=== PATIENT | female | born 1985 | race Caucasian/White ===

== ENCOUNTER → 2017-08-02 | Outpatient (CLI) | payer SELFPAY ==
--- NOTE | 2017-08-02 15:08 | Diagnostic Imaging Report ---
INDICATION: Abnormal uterine bleeding. FINDINGS: Uterus measures 7.5 x 5.5 x 5.2 cm. Endometrial stripe is thickened at 1.3 cm. There are no myometrial masses. The right ovary measures 4.0 x 2.3 x 3.4 cm. The left ovary measures 4.9 x 4 x 2.3 cm. There are multiple follicular cysts noted bilaterally, largest cyst measuring approximately 1.4 cm in the left ovary. There is a trace of free fluid adjacent to the left ovary. There is normal color flow enhancement to the ovaries. IMPRESSION: 1. There is mild endometrial thickening noted measuring 1.3 cm. 2. Bilateral follicular cysts with dominant cyst on the left measuring 1.4 cm. There is a small amount of free fluid surrounding the left ovary. Dictated by: Dictated on workstation # [id number]
== END ==
LOC: RAD 13:51
PROVIDERS: ATTEND Nurse Practitioner Family
DX: N85.8 Other specified noninflammatory disorders of uterus (principal); N83.201 Unspecified ovarian cyst, right side; N83.202 Unspecified ovarian cyst, left side
CPT/HCPCS: 76830; 76856

== ENCOUNTER 2021-04-04 06:19 | Day surgery (SDC) | payer MEDICAID ==
[2021-04-04] VITALS (10 sets, daily range): BP systolic 102–123; BP diastolic 68–95
[~2021-04-04] VITALS: Ht 177 cm; Wt 103.0 kg
[2021-04-04 06:59] LABS: BASOPHILS % (AUTO) 0 % (0-10); EOSINOPHILS # (AUTO) 0.7 10^3/uL (0.0-0.3); EOSINOPHILS % (AUTO) 6 % (0-10); HEMATOCRIT 40 % (35-52); HEMOGLOBIN 13.1 g/dL (11.5-16.0); LYMPHOCYTES # (AUTO) 2.4 10^3/uL (1.0-4.0); LYMPHOCYTES % (AUTO) 21 % (12-44); MEAN CORPUSCULAR HEMOGLOBIN 28 pg (25-34); MEAN CORPUSCULAR HGB CONC 33 g/dL (32-36); MEAN CORPUSCULAR VOLUME 85 fL (80-99); MEAN PLATELET VOLUME 10.7 fL (9.0-12.2); MONOCYTES # (AUTO) 0.8 10^3/uL (0.0-1.0); MONOCYTES % (AUTO) 7 % (0-12); NEUTROPHILS # (AUTO) 7.5 10^3/uL (1.8-7.8); NEUTROPHILS % (AUTO) 65 % (42-75); PLATELET COUNT 313 10^3/uL (130-400); WHITE BLOOD COUNT 11.5 10^3/uL (4.3-11.0)
[2021-04-04] MEDS ORDERED: ceFAZolin INJECTION 1,000 MG ONE (06:59)
[2021-04-04] MEDS ORDERED: WATER (STERILE) FOR INJECTION 10 ML ONE (06:59)
[2021-04-04] MEDS ORDERED: ceFAZolin INJECTION 1,000 MG in WATER (STERILE) FOR INJECTION 10 ML IV ONE (07:00)
[2021-04-04] MEDS ORDERED: LACTATED RINGERS 1,000 ML IV PRN (07:00)
[2021-04-04] MEDS ORDERED: MIDAZOLAM 2 MG/2 ML (VERSED) VIAL ONE (07:15)
[2021-04-04] MEDS ORDERED: fentaNYL INJ 100 MCG/2 ML AMP ONE (07:17)
[2021-04-04] MEDS ORDERED: LIDOCAINE PF 2% 5 ML (XYLOCAINE) VIAL ONE (07:45)
[2021-04-04] MEDS ORDERED: proPOfol 200 MG/20 ML (DIPRIVAN) VIAL IV ONE (07:45)
[2021-04-04] MEDS ORDERED: ONDANSETRON 4 MG/2 ML (SDV) Z0FRAN ONE (07:45)
[2021-04-04] MEDS ORDERED: KETOROLAC 30 MG/ML VIAL ONE (07:45)
[2021-04-04] MEDS ORDERED: SEVOFLURANE (ULTANE) 15 ML INHAL SOLN ONE (07:46)
--- NOTE | 2021-04-04 07:53 | Discharge Inst-Surgical ---
Discharge Inst-Surgical Depart Medication/Instructions New, Converted or Re-Newed RX: Other Consults/Follow Up Patient Instructions: As directed Orders & Referrals Follow Up Appt: Call to make follow up appt. for patient in 2 weeks. Activity: Rest for 24 hours, than as tolerated. Diet: As tolerated- shower or tub bathe as desired. Nothing per vagina (no tampons, douching, or intercoarse) for 2 weeks. Patient to return to the clinic as soon as possible for: Temperature greater than 101F, Severe Pain, Foul discharge from incision or vagina, Excessive Bleeding (more than a period). Diet Discharge Diet: No Restrictions VERITO TORRES MD Apr 04, 2021 07:53
--- NOTE | 2021-04-04 07:54 | Progress Note-Pre Operative ---
Pre-Operative Progress Note H&P Reviewed The H&P was reviewed, patient examined and no changes noted. Date Seen by Provider: Apr 04, 2021 Time Seen by Provider: 07:15 Date H&P Reviewed: Apr 04, 2021 Time H&P Reviewed: 07:15 Pre-Operative Diagnosis: Missed AB weeks gestation VERITO TORRES MD Apr 04, 2021 07:54
--- NOTE | 2021-04-04 07:55 | Progress Note-Post Operative ---
Post-Operative Progess Note Surgeon (s)/Ice Skater (s) Surgeon VERITO TORRES MD Ice Skater: no Pre-Operative Diagnosis Missed AB weeks gestation Post-Operative Diagnosis Same Procedure & Operative Findings Date of Procedure 04/04/21 Procedure Performed/Findings D&C for first trimester missed Anesthesia Type GETA Estimated Blood Loss Estimated blood loss (mL): Minimal Specimens/Packing Specimens Removed Uterine contents/products of conception VERITO TORRES MD Apr 04, 2021 07:55
[2021-04-04] MEDS ORDERED: D5 LR IV SOLUTION 1,000 ML IV SCH (08:00)
[2021-04-04] MEDS ORDERED: ONDANSETRON 4 MG/2 ML (SDV) Z0FRAN IVP PRN (08:00)
[2021-04-04] MEDS ORDERED: KETOROLAC 30 MG/ML VIAL IVP ONE (08:00)
[2021-04-04] MEDS ORDERED: KETOROLAC 30 MG/ML VIAL IVP SCH (08:00)
[2021-04-04] MEDS ORDERED: fentaNYL INJ 100 MCG/2 ML AMP IVP PRN (08:00)
[2021-04-04] MEDS ORDERED: oxyCODONE/APAP 5/325MG (PERCOCET 5) TABLET PO PRN (08:00)
--- NOTE | 2021-04-04 10:28 | OPERATIVE REPORT ---
DATE OF SERVICE: 04/04/2021 PREOPERATIVE DIAGNOSIS: Missed AB at 11 weeks' gestation. POSTOPERATIVE DIAGNOSIS: Missed AB at 11 weeks' gestation. OPERATIVE PROCEDURE: D and C for first trimester missed AB. OPERATIVE DESCRIPTION: With the patient in the supine position under satisfactory general anesthesia, she was repositioned in dorsal lithotomy position in the Mynor stirrups and prepped and draped in the usual fashion for vaginal surgery. A weighted speculum placed in posterior fornix of vagina, cervix exposed and grasped anteriorly with single tooth tenaculum. Uterus was sounded to 16 cm with uterine sound. Cervix was then serially dilated to a #10 Hegar dilator and then a #10 curved suction curette was introduced in the uterine cavity. Vacuum curettaged with removal of large amount of trophoblastic and decidual appearing tissue, blood, clot, amniotic fluid and debris. The endometrial cavity was then sharply curettaged in all 4 quadrants to good uterine cry. A curved suction curette was reintroduced, and all blood clot and debris evacuated from the uterine cavity. The tenaculum was removed. There was no bleeding from the cervical os. There was some bleeding from one of the puncture sites from the tenaculum. This was touched with silver nitrate to effect hemostasis. Now with hemostasis assured, sponge and needle counts correct and procedure was complete and terminated. Estimated blood loss for procedure was minimal. Sponge and needle counts were correct on completion of procedure. The patient was uneventfully awakened from her general anesthesia and transferred to the recovery room in stable condition with plans for discharge home PAR. Job ID: [id number] DocumentID: [id number] Dictated Date: 04/04/2021 07:36:07 Traffic Control Flagger Date: 04/04/2021 10:28:04 Dictated By: VERITO TORRES MD
--- NOTE | 2021-04-04 10:51 | Anesthesia-General Post-Op ---
General Patient Condition Mental Status/LOC: Same as Preop Cardiovascular: Satisfactory Nausea/Vomiting: Absent Respiratory: Satisfactory Pain: Controlled Complications: Absent Post Op Complications Complications None Follow Up Care/Instructions Patient Instructions None needed. Anesthesia/Patient Condition Patient Condition Patient is doing well, no complaints, stable vital signs, no apparent adverse anesthesia problems. No complications reported per nursing. GILA ETJEDA CRNA Apr 04, 2021 10:51
== END 2021-04-04 09:25 ==
LOC: SDC 06:19
PROVIDERS: ATTEND Obstetrics & Gynecology
DX: O02.1 Missed abortion (principal); E66.9 Obesity, unspecified; Z68.32 Body mass index [BMI] 32.0-32.9, adult; Z79.899 Other long term (current) drug therapy
CPT/HCPCS: 36415; 85025; 86850; 86900; 86901; 87081

== ENCOUNTER 2022-04-11 11:14 | Inpatient (IN) | payer MEDICAID ==
[~2022-04-11] VITALS: Ht 177.8 cm; Wt 100.3 kg
[2022-04-11] VITALS (16 sets, daily range): BP systolic 96–137; BP diastolic 54–82
--- NOTE | 2022-04-11 11:20 | History & Physical ---
History and Physical Date Seen by Provider: Apr 11, 2022 Time Seen by Provider: 11:18 This patient is a 36-year-old 5 para 2 A3 female with an EDC of 05/09/2022 putting her at 36 weeks gestation now. She is seen in clinic on this date and found to be in labor. Her cervix initially was 4 to 5 cm dilated on recheck less than an hour later she was 6 to 7 cm 80% effaced 0 station vertex presentation with a bulging bag. She also may be leaking amniotic fluid as she had a low ADA on ultrasound and reports constantly being wet between the legs for the last week. Patient's GBS culture was negative. She has had no other problems with this . She has delivered her other babies at 36 to 37 weeks. Allergies are none Medications are vitamins Medical social and surgical history is are per the antepartum record HEENT exam is normal Neck is supple no lymphadenopathy no thyromegaly Abdomen is gravid soft nontender nondistended Extremity show no clubbing cyanosis. There is no Homans' sign. Pelvic exam in my clinic showed a cervix it was 6 to 7 cm dilated 80% effaced 0 to -1 station vertex presentation with a bulging bag and with bloody show Assessment and plan 36-week with labor and a GBS negative culture with advanced cervical dilation. We anticipate vaginal delivery 36 weeks gestation with labor Allergies and Home Medications Allergies Coded Allergies: No Known Drug Allergies (Unverified , 04/04/21) Patient Home Medication List Home Medication List Reviewed: Yes No Active Prescriptions or Reported Meds VERITO TORRES MD Apr 11, 2022 11:20
[2022-04-11] MEDS ORDERED: D5 LR IV SOLUTION 1,000 ML IV SCH (11:30)
[2022-04-11] MEDS ORDERED: D5 LR IV SOLUTION 1,000 ML IV ONE (11:34)
[2022-04-11 11:57] LABS: BASOPHILS % (AUTO) 0 % (0-10); EOSINOPHILS # (AUTO) 0.2 10^3/uL (0.0-0.3); EOSINOPHILS % (AUTO) 2 % (0-10); HEMATOCRIT 31 % (35-52); HEMOGLOBIN 10.4 g/dL (11.5-16.0); LYMPHOCYTES # (AUTO) 2.1 10^3/uL (1.0-4.0); LYMPHOCYTES % (AUTO) 19 % (12-44); MEAN CORPUSCULAR HEMOGLOBIN 29 pg (25-34); MEAN CORPUSCULAR HGB CONC 34 g/dL (32-36); MEAN CORPUSCULAR VOLUME 84 fL (80-99); MEAN PLATELET VOLUME 10.6 fL (9.0-12.2); MONOCYTES # (AUTO) 0.6 10^3/uL (0.0-1.0); MONOCYTES % (AUTO) 5 % (0-12); NEUTROPHILS # (AUTO) 7.6 10^3/uL (1.8-7.8); NEUTROPHILS % (AUTO) 72 % (42-75); PLATELET COUNT 258 10^3/uL (130-400); WHITE BLOOD COUNT 10.6 10^3/uL (4.3-11.0)
[2022-04-11] MEDS ORDERED: OXYTOCIN PRE-MIX DRIP 500 ML IV SCH ×2 (16:15→18:15)
[2022-04-11] MEDS ORDERED: OXYC-199 PO (16:28)
[2022-04-11] MEDS ORDERED: IBUP-1780 PO (16:28)
[2022-04-11] MEDS ORDERED: DOCU-143 PO (16:28)
--- NOTE | 2022-04-11 16:30 | Discharge Inst-Surgical ---
Discharge Inst-Surgical Depart Medication/Instructions New, Converted or Re-Newed RX: Transmitted to Pharmacy Consults/Follow Up Patient Instructions: As directed Orders & Referrals Follow Up Appt: Call to make follow up appt. for patient in 4 weeks. Activity Per routine post vaginal delivery instructions. Diet as tolerated Patient may shower or tub bathe as desired. Activity Activity as Tolerated: No Diet Discharge Diet: No Restrictions VERITO TORRES MD Apr 11, 2022 16:30
[2022-04-11] MEDS ORDERED: BENZOCAINE/MENTHOL (DERMOPLAST) 56 ML CAN TP PRN (18:15)
[2022-04-11] MEDS ORDERED: TETANUS,DIPTH,PERTUSS P/F (BOOSTRIX) 0.5 ML VIAL IM ONE (18:15)
[2022-04-11] MEDS: IBUPROFEN 800 MG (MOTRIN) TAB PO SCH (20:10)
[2022-04-11] MEDS ORDERED: CALCIUM CARBONATE 500 MG (TUMS) TAB.CHEW PO ONE (23:45)
[2022-04-12 02:00] VITALS: BP 116/68
[2022-04-12] MEDS: IBUPROFEN 800 MG (MOTRIN) TAB PO SCH ×3 (02:00→18:06)
[2022-04-12] MEDS: ACETAMINOPHEN 500 MG TAB (TYLENOL) PO SCH ×3 (02:00→18:06)
--- NOTE | 2022-04-12 03:24 | OPERATIVE REPORT ---
DATE OF SERVICE: 04/11/2022 DELIVERY NOTE The patient delivered by spontaneous vaginal delivery of a viable male infant with Apgars of 8 and 9 at 1 and 5 minutes respectively, weight of 5 pounds 13 ounces, time of 1754 and a cord blood pH is pending. The infant was delivered over an intact perineum under no analgesia. The was bulb suctioned on delivery of the head and again on completion of delivery. The umbilical cord was doubly clamped, father cut the cord, the baby was passed to mom's abdomen. The placenta delivered spontaneously fairly promptly after the baby delivered. The placenta was normal with 3-vessel cord. It was sent to pathology for permanent section due to labor and delivery. The cervix, vagina, rectum, and perineum were examined and found intact. Sponge and needle counts were correct. Blood loss was around 50 mL. The patient tolerated the delivery well and remained in the LDR for recovery. The baby remained with the mom. Job ID: [id number] DocumentID: [id number] Dictated Date: 04/11/2022 18:59:46 Vocational Aide Date: 04/12/2022 03:23:54 Dictated By: VERITO TORRES MD
[2022-04-12 06:30] VITALS: BP 98/53
[2022-04-12] MEDS ORDERED: BISACODYL 5 MG (DULCOLAX) TABLET PO ONE ×3 (07:00→11:00)
--- NOTE | 2022-04-12 07:14 | Progress Note ---
Standard Progress Note Progress Notes/Assess & Plan Date Seen by a Provider: Apr 12, 2022 Time Seen by a Provider: 07:13 Progress/Assessment & Plan This patient is without complaint. She is ambulating, voiding, tolerating oral intake well and has good pain control. Vital Signs Date Time Temp Pulse Resp B/P (MAP) Pulse Ox O2 Delivery O2 Flow Rate FiO2 04/12/22 06:30 36.7 68 18 98/53 (68) 99 04/12/22 02:00 36.7 69 18 116/68 (84) 98 04/11/22 21:26 74 18 96/54 (68) 04/11/22 21:11 67 18 105/57 (73) 04/11/22 20:56 70 18 101/66 (78) 04/11/22 20:41 73 18 99/66 (77) 04/11/22 20:26 75 18 104/60 (75) 04/11/22 20:12 36.3 75 18 111/64 (80) 04/11/22 18:26 36.2 84 20 99/72 (81) 04/11/22 18:10 74 20 106/67 (80) 04/11/22 17:55 92 20 101/63 (76) 04/11/22 17:45 77 20 116/70 (85) 04/11/22 17:30 74 20 137/82 (100) 04/11/22 17:10 67 20 109/66 (80) 04/11/22 16:55 60 20 107/67 (80) 04/11/22 16:40 68 20 101/60 (74) 04/11/22 16:25 36.7 74 20 103/62 (76) 04/11/22 11:25 36.0 83 18 98 Room Air I & O 04/12/22 07:00 Intake Total 500 ml Balance 500 ml Vital signs are stable. Patient is afebrile. Fundus is firm below the umbilicus Tender. Extremities show no clubbing or cyanosis. There is no Homans' sign. Assessment and plan day 1 doing well plan. Will discharge home today or tomorrow as patient prefers Final Diagnosis 36-week spontaneous vaginal delivery VERITO TORRES MD Apr 12, 2022 07:14
[2022-04-12] MEDS ORDERED: BISACODYL 10 MG SUPP (DULCOLAX) PR ONE ×2 (07:15→11:00)
[2022-04-12 09:30] VITALS: BP 106/67
[2022-04-12 12:45] VITALS: BP 105/55
[2022-04-12] MEDS: DOCUSATE SODIUM 100 MG (COLACE) CAP PO SCH (13:20)
[2022-04-12 18:07] VITALS: BP 105/59
[2022-04-13] VITALS: BP 99/57
[2022-04-13] MEDS: ACETAMINOPHEN 500 MG TAB (TYLENOL) PO SCH ×2 (02:08→11:03)
[2022-04-13 06:45] VITALS: BP 100/60
--- NOTE | 2022-04-13 06:57 | Progress Note ---
Standard Progress Note Progress Notes/Assess & Plan Date Seen by a Provider: Apr 13, 2022 Time Seen by a Provider: 06:54 Progress/Assessment & Plan This patient is without complaint. She is ambulating, voiding, tolerating oral intake well and has good pain control. Vital Signs Date Time Temp Pulse Resp B/P (MAP) Pulse Ox O2 Delivery O2 Flow Rate FiO2 04/12/22 06:30 36.7 68 18 98/53 (68) 99 04/12/22 02:00 36.7 69 18 116/68 (84) 98 04/11/22 21:26 74 18 96/54 (68) 04/11/22 21:11 67 18 105/57 (73) 04/11/22 20:56 70 18 101/66 (78) 04/11/22 20:41 73 18 99/66 (77) 04/11/22 20:26 75 18 104/60 (75) 04/11/22 20:12 36.3 75 18 111/64 (80) 04/11/22 18:26 36.2 84 20 99/72 (81) 04/11/22 18:10 74 20 106/67 (80) 04/11/22 17:55 92 20 101/63 (76) 04/11/22 17:45 77 20 116/70 (85) 04/11/22 17:30 74 20 137/82 (100) 04/11/22 17:10 67 20 109/66 (80) 04/11/22 16:55 60 20 107/67 (80) 04/11/22 16:40 68 20 101/60 (74) 04/11/22 16:25 36.7 74 20 103/62 (76) 04/11/22 11:25 36.0 83 18 98 Room Air I & O 04/12/22 07:00 Intake Total 500 ml Balance 500 ml Vital signs are stable. Patient is afebrile. Fundus is firm below the umbilicus Tender. Extremities show no clubbing or cyanosis. There is no Homans' sign. Assessment and plan day 1 doing well plan. Will discharge home today or tomorrow as patient prefers April 13, 2022 Patient is without complaint. She is ambulating, voiding, tolerating oral intake well and has good pain control. Vital Signs Date Time Temp Pulse Resp B/P (MAP) Pulse Ox O2 Delivery O2 Flow Rate FiO2 04/13/22 06:45 36.4 58 16 100/60 (73) 99 Room Air 04/13/22 00:00 36.7 57 18 99/57 (71) 100 Room Air 04/12/22 18:07 36.7 78 20 105/59 (74) 98 Room Air 04/12/22 12:45 36.6 59 18 105/55 (72) 98 Room Air 04/12/22 09:30 36.8 85 18 106/67 (80) 98 Room Air Vital signs are stable. Patient is afebrile. Fundus is firm below the umbilicus and nontender. Extremities show no clubbing cyanosis. There is no Homans' sign. Assessment and plan day #2 doing well. Plan is for discharge home with follow-up Final Diagnosis 36-week spontaneous vaginal delivery VERITO TORRES MD Apr 13, 2022 06:56
[2022-04-13 08:45] VITALS: BP 121/62
[2022-04-13] MEDS: IBUPROFEN 800 MG (MOTRIN) TAB PO SCH ×3 (09:11→15:11)
[2022-04-13] MEDS: DOCUSATE SODIUM 100 MG (COLACE) CAP PO SCH ×2 (09:11)
[2022-04-13 14:30] VITALS: BP 115/61
[2022-04-13 16:30] VITALS: BP 115/61
== END 2022-04-13 16:30 | disposition home or self-care (01) | DRG 805 ==
LOC: LDRP 11:14
PROVIDERS: ADMIT Obstetrics & Gynecology; ATTEND Obstetrics & Gynecology
PROC: 10E0XZZ Delivery of Products of Conception, External Approach (ICD-10-PCS; principal; 2022-04-11)
DX: O60.14X0 Preterm labor third trimester with preterm delivery third trimester, not applicable or unspecified (principal); O34.33 Maternal care for cervical incompetence, third trimester; Z37.0 Single live birth; Z3A.36 36 weeks gestation of pregnancy
CPT/HCPCS: 36415; 85025; 86850; 86900; 86901; 99212